=== PATIENT | male | born 1960 | race Caucasian/White ===

== ENCOUNTER 2017-11-06 08:02 | Emergency (ER) | payer BC ==
[2017-11-06] VITALS (7 sets, daily range): BP systolic 152–248; BP diastolic 67–123; PULSE 100–107; RESP 24–27; O2SAT 95–100
[~2017-11-06] VITALS: Ht 172.7 cm; Wt 129.5 kg
[2017-11-06] MEDS ORDERED: methylPREDNISolone SOD SUCC 125 MG/2 ML VIAL IV PUSH ONE (08:15)
[2017-11-06] MEDS ORDERED: SODIUM CHLORIDE 0.9% FLUSH 10 ML FLUSH IVF PRN (08:15)
[2017-11-06 08:28] LABS: AUTOMATED NEUTROPHIL # 7.3 TH/MM3 (1.8-7.7); BASOPHIL # 0.1 TH/MM3 (0-0.2); BASOPHIL % 0.6 % (0.0-2.0); EOSINOPHIL # 0.4 TH/MM3 (0-0.4); EOSINOPHIL % 3.7 % (0.0-4.0); HEMATOCRIT 47.9 % (39.0-51.0); HEMOGLOBIN 17.4 GM/DL (13.0-17.0); LYMPH % 20.5 % (9.0-44.0); LYMPHOCYTE # 2.2 TH/MM3 (1.0-4.8); MEAN CELL VOLUME 93.2 FL (80.0-100.0); MEAN CORPUSCULAR HEMOGLOBIN 33.8 PG (27.0-34.0); MEAN PLATELET VOLUME 7.3 FL (7.0-11.0); MONO % 6.9 % (0.0-8.0); MONOCYTE # 0.7 TH/MM3 (0-0.9); NEUT % 68.3 % (16.0-70.0); PLATELET COUNT 238 TH/MM3 (150-450); RED BLOOD COUNT 5.14 MIL/MM3 (4.50-5.90); RED CELL DISTRIBUTION WIDTH 13.6 % (11.6-17.2); WHITE BLOOD COUNT 10.7 TH/MM3 (4.0-11.0)
--- NOTE | 2017-11-06 08:36 | RADRPT ---
EXAM DATE/TIME: 11/06/2017 08:20 [place] COMPARISON: No previous studies available for comparison. INDICATIONS : Short of breath MEDICAL HISTORY : SURGICAL HISTORY : None. ENCOUNTER: Initial ACUITY: 1 day PAIN SCORE: 0/10 LOCATION: chest FINDINGS: Minimal parenchymal changes left base. The right lung is clear. The heart and pulmonary vascularity are normal.. Osseous structures are intact. CONCLUSION: Minimal parenchymal changes left base no overt failure. No pleural effusion. Jagdish Lambert MD FACR on November 06, 2017 at 8:33 Board Certified Radiologist. This report was verified electronically.
[2017-11-06] MEDS: RESP: ALBUTEROL 2.5 MG/IPRATROPIUM 0.5 MG NEB (SCH) INH (08:37)
[2017-11-06 08:42] LABS: MEAN CORPUSCULAR HGB CONC 36.3 % (32.0-36.0)
[2017-11-06 08:43] LABS: PROTHROMBIN TIME - PATIENT 10.6 SEC (9.8-11.6)
[2017-11-06 08:56] LABS: ALBUMIN 4.1 GM/DL (3.4-5.0); AST (GOT) 19 U/L (15-37); BLOOD UREA NITROGEN 9 MG/DL (7-18); CALCIUM 9.5 MG/DL (8.5-10.1); CHLORIDE 108 MEQ/L (98-107); CREATININE 1.12 MG/DL (0.60-1.30); GLOMERULAR FILTRATION RATE 68 ML/MIN (>89); GLUCOSE,RANDOM 117 MG/DL (74-106); SODIUM (NA) 139 MEQ/L (136-145)
[2017-11-06 08:57] LABS: ALT (GPT) 30 U/L (12-78)
[2017-11-06 09:01] LABS: ALKALINE PHOSPHATASE 68 U/L (45-117); TOTAL BILIRUBIN ADULT 0.7 MG/DL (0.2-1.0); TOTAL PROTEIN 8.2 GM/DL (6.4-8.2); TROPONIN I LESS THAN 0.02 NG/ML (0.02-0.05)
[2017-11-06] MEDS ORDERED: RESP: ALBUTEROL 2.5 MG/IPRATROPIUM 0.5 MG NEB (SCH) NEB ONE (10:45)
[2017-11-06] MEDS ORDERED: PRED50 PO (11:06)
[2017-11-06] MEDS ORDERED: VENTAER INH (11:06)
--- NOTE | 2017-11-06 11:07 | PD ---
HPI Chief Complaint: Respiratory Symptoms Time Seen by Provider: 08:06 Travel History International Travel<30 days: No Contact w/Intl Traveler<30days: No Traveled to known affect area: No History of Present Illness HPI Patient is a 57 year old male who comes in complaining of SOB. He says that this started this morning. He says that he has been having issues with his allergies and took Zyrtec last night. He denies cough or fevers. He denies having chest pain. He denies leg swelling. He is a smoker. He says he used albuterol several years ago, but does not use it regularly. Severity is moderate. PFSH Past Medical History Respiratory: Yes (SLEEP APNEA ) Sleep Apnea: Yes Social History Alcohol Use: No Tobacco Use: Yes Substance Use: No Allergies-Medications (Allergen,Severity, Reaction): Coded Allergies: No Known Allergies (Unverified , 11/06/17) Review of Systems Except as stated in HPI: all other systems reviewed are Neg General / Constitutional: No: Fever, Chills HENT: No: Headaches, Lightheadedness Cardiovascular: No: Chest Pain or Discomfort Respiratory: Positive: Shortness of Breath, Wheezing Gastrointestinal: No: Vomiting, Abdominal Pain Musculoskeletal: No: Edema Physical Exam Narrative GENERAL: Awake and alert, in mild respiratory distress. SKIN: Focused skin assessment warm/dry. HEAD: Atraumatic. Normocephalic. EYES: Pupils equal and round. No scleral icterus. No injection or drainage. ENT: No nasal bleeding or discharge. Mucous membranes pink and moist. NECK: Trachea midline. No JVD. CARDIOVASCULAR: Regular rate and rhythm. No murmur appreciated. RESPIRATORY: No accessory muscle use. Decreased breath sounds, diffuse wheezing throughout both lungs. Breath sounds equal bilaterally. GASTROINTESTINAL: Abdomen soft, non-tender, nondistended. MUSCULOSKELETAL: No obvious deformities. No clubbing. No cyanosis. No edema. NEUROLOGICAL: Awake and alert. No obvious cranial nerve deficits. Motor grossly within normal limits. Normal speech. PSYCHIATRIC: Appropriate mood and affect; insight and judgment normal. Data Data Last Documented VS Vital Signs Date Time Temp Pulse Resp B/P (MAP) Pulse Ox O2 Delivery O2 Flow Rate FiO2 11/06/17 09:52 104 24 152/67 (95) 95 Nasal Cannula 2.50 Orders Orders Complete Blood Count With Diff (11/06/17 08:05) Comprehensive Metabolic Panel (11/06/17 08:05) B-Type Natriuretic Peptide (11/06/17 08:05) Act Partial Throm Time (Ptt) (11/06/17 08:05) Prothrombin Time / Inr (Pt) (11/06/17 08:05) Ckmb (Isoenzyme) Profile (11/06/17 08:05) Troponin I (11/06/17 08:05) Iv Access Insert/Monitor (11/06/17 08:05) Electrocardiogram (11/06/17 08:05) Ecg Monitoring (11/06/17 08:05) Oximetry (11/06/17 08:05) Oxygen Administration (11/06/17 08:05) Chest, Single Ap (11/06/17 08:05) Sodium Chloride 0.9% Flush (Ns Flush) (11/06/17 08:15) Methylprednisolone So Succ Inj (Solumedr (11/06/17 08:15) Albuterol-Ipratropium Neb (Duoneb Neb) (11/06/17 08:15) CKMB (11/06/17 08:10) CKMB% (11/06/17 08:10) Albuterol-Ipratropium Neb (Duoneb Neb) (11/06/17 10:45) Labs Laboratory Tests Test 11/06/17 08:10 White Blood Count 10.7 TH/MM3 Red Blood Count 5.14 MIL/MM3 Hemoglobin 17.4 GM/DL Hematocrit 47.9 % Mean Corpuscular Volume 93.2 FL Mean Corpuscular Hemoglobin 33.8 PG Mean Corpuscular Hemoglobin Concent 36.3 % Red Cell Distribution Width 13.6 % Platelet Count 238 TH/MM3 Mean Platelet Volume 7.3 FL Neutrophils (%) (Auto) 68.3 % Lymphocytes (%) (Auto) 20.5 % Monocytes (%) (Auto) 6.9 % Eosinophils (%) (Auto) 3.7 % Basophils (%) (Auto) 0.6 % Neutrophils # (Auto) 7.3 TH/MM3 Lymphocytes # (Auto) 2.2 TH/MM3 Monocytes # (Auto) 0.7 TH/MM3 Eosinophils # (Auto) 0.4 TH/MM3 Basophils # (Auto) 0.1 TH/MM3 CBC Comment AUTO DIFF Differential Comment AUTO DIFF CONFIRMED Prothrombin Time 10.6 SEC Prothromb Time International Ratio 1.0 RATIO Activated Partial Thromboplast Time 26.6 SEC Blood Urea Nitrogen 9 MG/DL Creatinine 1.12 MG/DL Random Glucose 117 MG/DL Total Protein 8.2 GM/DL Albumin 4.1 GM/DL Calcium Level 9.5 MG/DL Alkaline Phosphatase 68 U/L Aspartate Amino Transf (AST/SGOT) 19 U/L Alanine Aminotransferase (ALT/SGPT) 30 U/L Total Bilirubin 0.7 MG/DL Sodium Level 139 MEQ/L Potassium Level 4.0 MEQ/L Chloride Level 108 MEQ/L Carbon Dioxide Level 24.0 MEQ/L Anion Gap 7 MEQ/L Estimat Glomerular Filtration Rate 68 ML/MIN Total Creatine Kinase 334 U/L Creatine Kinase MB 6.7 NG/ML Creatine Kinase MB % 2.0 % Troponin I LESS THAN 0.02 NG/ML B-Type Natriuretic Peptide 3 PG/ML MDM Medical Decision Making Medical Screen Exam Complete: Yes Emergency Medical Condition: Yes Interpretation(s) ECG shows sinus tachycardia at a rate of 104, no ST elevation or depression Differential Diagnosis COPD exacerbation versus ACS versus pneumonia Narrative Course Patient is a 57-year-old male who comes in complaining of shortness of breath. He has decreased breath sounds throughout both lungs, wheezing present. IV established, labs sent. Patient given 3 DuoNeb's and a dose of Solu-Medrol. Labs show no acute abnormalities. Chest x-ray shows no acute abnormalities. Last 24 hours Impressions Chest X-Ray 11/06/17 0805 Signed Impressions: Service Date/Time: Monday, November 06, 2017 08:20 - CONCLUSION: Minimal parenchymal changes left base no overt failure. No pleural effusion. Jagdish Lambert MD FACR Patient is still wheezing. Given a fourth DuoNeb. He is advised he should be admitted to the hospital. He says he cannot be admitted today. I advised that he could leave and become very sick and even . He is awake, alert, oriented 3 and understands these risks. He has elected to sign out AMA. AMA: The risks of leaving against medical advice without further evaluation treatment were discussed with the patient. These risks include cardiac dysfunction, cardiac dysrhythmia, possible heart attack, possible stroke or . The patient indicated understanding of these risks and appeared to have the capacity to make this decision. Diagnosis Primary Impression: COPD exacerbation Patient Instructions: COPD (Chronic Obstructive Pulmonary Disease) (ED), General Instructions Additional Instructions: Try to quit smoking. Use albuterol as needed. Take the prednisone starting tomorrow. Return anytime for any worsening symptoms. Scripts Prednisone (Prednisone) 50 Mg Tab 50 MG PO DAILY for 4 Days, #4 TAB 0 Refills Prov: Monica Caruso MD 11/06/17 Albuterol 18 GM Inh (Ventolin Hfa 18 GM Inh) 90 Mcg/Act Aer 2 PUFF INH Q4-6H Y for SHORTNESS OF BREATH, #1 INHALER 0 Refills Prov: Monica Caruso MD 11/06/17 Disposition: 07 AGAINST MEDICAL ADVICE Monica Caruso MD Nov 06, 2017 11:07
--- NOTE | 2017-11-06 14:20 | EKG ---
Date Performed: 11/06/2017 Time Performed: 08:09:04 PTAGE: 57 years EKG: SINUS TACHYCARDIA ABNORMAL RHYTHM ECG NO PREVIOUS TRACING DOCTOR: Tiffanie Carr Interpretating Date/Time 11/06/2017 14:19:33
== END 2017-11-06 11:22 | disposition left against medical advice (07) ==
LOC: NEPE 08:02
DX: J44.1 Chronic obstructive pulmonary disease with (acute) exacerbation (principal); R94.31 Abnormal electrocardiogram [ECG] [EKG]; G47.30 Sleep apnea, unspecified; F17.200 Nicotine dependence, unspecified, uncomplicated
CPT/HCPCS: 71045; 80053; 82550; 82552; 83880; 84484; 85025; 85610; 85730; 93005; 94640; 94664; 96374; 99285; J2930